=== PATIENT | male | born 1990 | race African-American/Black ===

== ENCOUNTER 2017-12-11 13:30 | Emergency (ER) | payer OTHER ==
[2017-12-11 13:54] VITALS: BP 131/90
--- NOTE | 2017-12-11 14:19 | UC ---
Francesca Mejia Julia, scribed for Judson Deluca MD on 12/11/17 at 1412 . Skin Complaint HPI - HPI Summary HPI Summary: This patient is a 26 year old M presenting to [facility] with a chief complaint of a skin rash on the back of his neck. Patient is unaware of onset, but mentions someone mentioned it to him on 12/09/17. Patient states rash is mildly pruritic. Patient denies any other symptoms. - History of Current Complaint Chief Complaint: UCSkin Time Seen by Provider: 12/11/17 13:55 Stated Complaint: SKIN COMPLAINT Hx Obtained From: Patient Onset/Duration: Other - unknown Timing: Constant Location: Other - posterior neck Character: Pruritus Associated Signs & Symptoms: Positive: Negative - Allergy/Home Medications Allergies/Adverse Reactions: Allergies Allergy/AdvReac Type Severity Reaction Status Date / Time No Known Allergies Allergy Verified 12/11/17 13:46 Review of Systems Constitutional: Negative Skin: Rash All Other Systems Reviewed And Are Negative: Yes PMH/Surg Hx/FS Hx/Imm Hx Previously Healthy: Yes - Surgical History Surgical History: None - Family History Known Family History: Positive: Other - Pt denies any family medical history. - Social History Alcohol Use: Weekly Substance Use Type: None Smoking Status (MU): Never Smoked Tobacco - Immunization History Most Recent Influenza Vaccination: never Physical Exam Triage Information Reviewed: Yes Appearance: Well-Appearing, No Pain Distress Vital Signs: Initial Vital Signs Temp 97.8 F 12/11/17 13:39 Pulse 85 12/11/17 13:39 Resp 16 12/11/17 13:39 BP 131/90 12/11/17 13:39 Pulse Ox 100 12/11/17 13:39 Vital Signs Reviewed: Yes Eyes: Positive: Conjunctiva Clear ENT: Positive: Other Neck: Positive: Supple, Nontender Respiratory: Positive: Lungs clear, Normal breath sounds, No respiratory distress Cardiovascular: Positive: RRR, No Murmur Abdomen Description: Positive: Nontender Musculoskeletal: Positive: Strength Intact, ROM Intact Neurological: Positive: Alert, Muscle Tone Normal Psychological: Positive: Age Appropriate Behavior Skin: Positive: Other - there is an area of hypopigmentation, with raised border , scaly and irregular on the back of the head, occipital area and the upper neck consitent with tinea corporis. Course/Dx - Course Course Of Treatment: 27 y/o has raised and lightening patch of skin on posterior neck. I recommened he use Selsum Blue and gave him a prescription for Fluconazole. - Diagnoses Provider Diagnoses: tinea corporis. elevated blood pressure reading Discharge - Discharge Plan Condition: Good Disposition: HOME Prescriptions: Fluconazole [Fluconazole 200 mg tab] 200 mg PO WEEKLY #3 tab Patient Education Materials: Tinea Corporis (ED), Hypertension (ED) Referrals: [facility] [Outside] No Primary Care Phys,NOPCP [Primary Care Provider] - Additional Instructions: use selsun blue shampoo. The documentation as recorded by the Francesca friend Julia accurately reflects the service I personally performed and the decisions made by me, Judson Deluca MD.
== END 2017-12-11 14:15 | disposition home or self-care (01) ==
LOC: UCEAST 13:30
DX: B35.4 Tinea corporis (principal); R03.0 Elevated blood-pressure reading, without diagnosis of hypertension
CPT/HCPCS: 99202; G0463

== ENCOUNTER 2018-01-23 14:44 | Emergency (ER) | payer OTHER ==
[2018-01-23 14:58] VITALS: BP 132/77
--- NOTE | 2018-01-23 15:17 | UC ---
Skin Complaint HPI - HPI Summary HPI Summary: Pt presents with continued rash and itch to back of neck. He was seen for this same issue about a month ago and prescribed fluconazole once a week for three weeks. He says that this helped significantly, but feels as though he needed a longer course to resolve symptoms. - History of Current Complaint Chief Complaint: UCSkin Time Seen by Provider: 01/23/18 15:17 Stated Complaint: SKIN COMPLAINT,BACK OF NECK Hx Obtained From: Patient Onset/Duration: Gradual Onset Pain Intensity: 0 - Allergy/Home Medications Allergies/Adverse Reactions: Allergies Allergy/AdvReac Type Severity Reaction Status Date / Time No Known Allergies Allergy Verified 01/23/18 14:56 Review of Systems Constitutional: Negative Skin: Rash Eyes: Negative ENT: Negative Respiratory: Negative Cardiovascular: Negative Neurological: Negative Psychological: Negative All Other Systems Reviewed And Are Negative: Yes PMH/Surg Hx/FS Hx/Imm Hx Previously Healthy: Yes - Surgical History Surgical History: None - Family History Known Family History: Positive: Unknown, Other - Pt denies any family medical history. - Social History Occupation: Student Lives: Alone Alcohol Use: Occasionally Substance Use Type: None Smoking Status (MU): Never Smoked Tobacco - Immunization History Most Recent Influenza Vaccination: never Physical Exam - Summary Physical Exam Summary: GENERAL: NAD. WDWN. No pain distress. SKIN: Back of neck with oval, hypopigmented, mildly scaling patch. No erythema, streaking, or drainage. Head: AT/NC NECK: Supple. Nontender. No lymphadenopathy. CHEST: CTAB. No r/r/w. No accessory muscle use. Breathing comfortably and in no distress. CV: RRR. Without m/r/g. Pulses intact. Brisk cap refill. NEURO: Alert. CN II-XII grossly intact. PSYCH: Age appropriate behavior. Triage Information Reviewed: Yes Vital Signs: Initial Vital Signs Temp 97.7 F 01/23/18 14:57 Pulse 87 01/23/18 14:57 Resp 16 01/23/18 14:57 BP 132/77 01/23/18 14:57 Pulse Ox 100 01/23/18 14:57 Course/Dx - Course Course Of Treatment: Tinea back of neck - will try another once weekly dose of fluconazole for 3 weeks and add lotrimin cream BID for 1 week. - Diagnoses Provider Diagnoses: Tinea skin infection neck Discharge - Discharge Plan Condition: Stable Disposition: HOME Prescriptions: Butenafine HCl 1 % TOPICAL BID #1 tube Fluconazole [Fluconazole 200 mg tab] 200 mg PO WEEKLY #3 tablet Patient Education Materials: Tinea Corporis (ED) Referrals: No Primary Care Phys,NOPCP [Primary Care Provider] - Marisela Felton MD [Medical Doctor] - If Needed Additional Instructions: If you develop a fever, shortness of breath, chest pain, new or worsening symptoms - please call your PCP or go to the ED. 1) If your symptoms persist after this second treatment course, please call Dermatology at the number below to schedule a follow up appointment.
== END 2018-01-23 15:28 | disposition home or self-care (01) ==
LOC: UCEAST 14:44
DX: B35.4 Tinea corporis (principal)
CPT/HCPCS: 99212; G0463